=== PATIENT | male | born 1995 | race Caucasian/White ===

== ENCOUNTER 2018-02-06 18:46 | Emergency (ER) | payer SELFPAY ==
[~2018-02-06] VITALS: Ht 167.6 cm; Wt 77.1 kg
[2018-02-06 18:54] VITALS: BP 111/74
--- NOTE | 2018-02-06 18:59 | NUR ---
PT PLACED IN ER LOBBY TO WAIT FOR A BED.
--- NOTE | 2018-02-06 19:50 | NUR ---
22/M CAME IN W C/O RECTAL PAIN, BURNING SENSATION, CONSTANT X 2 DAYS AGO. PT DENIES ABD PAIN, MELENA/HEMATOCHEZIA, N/V/D, OR CONSTIPATION. DENIES OTHER PMH/RX/OTC
--- NOTE | 2018-02-06 19:51 | NUR ---
PT AMBULAED TO ER BED 6
[2018-02-06 21:20] VITALS: BP 131/92
--- NOTE | 2018-02-06 21:20 | NUR ---
Patient discharged with v/s stable. Written and verbal after care instructions given and explained. Patient alert, oriented and verbalized understanding of instructions. Ambulatory with steady gait. All questions addressed prior to discharge. ID band removed. Patient advised to follow up with PMD. Rx of ANUSOL RECTAL CREAM given. Patient educated on indication of medication including possible reaction and side effects. Opportunity to ask questions provided and answered.
== END 2018-02-06 19:50 | disposition home or self-care (01) ==
LOC: MED 18:46
DX: K64.4 Residual hemorrhoidal skin tags (principal); Z91.018 Allergy to other foods
CPT/HCPCS: 99282

== ENCOUNTER 2018-03-04 22:27 | Emergency (ER) | payer SELFPAY ==
[~2018-03-04] VITALS: Ht 167.6 cm; Wt 74.8 kg
[2018-03-04 22:33] VITALS: BP 142/80
--- NOTE | 2018-03-04 22:35 | NUR ---
TO LOBBY A/W BED, [place] LIN NOTED
--- NOTE | 2018-03-04 23:07 | NUR ---
PT RETURN FROM XRAY TO THE LOBBY
--- NOTE | 2018-03-05 00:12 | NUR ---
PT AMBULATED TO ER BED 9
--- NOTE | 2018-03-05 00:15 | NUR ---
22 Y/O M BIB SELF W/C/O FALLING ON L ARM LAST NIGHT. PT STATES, "THERE IS SEVERE PAIN WHEN I MOVE IT." POSITIVE CMS BUT PT STATES UNABLE TO STRAIGHTEN ARM. SWELLING NOTED ON THE L FOREARM. NO BRUSING OR REDNESS, BLEEDING NOTED. ABRASION NOTED ON L ARM. NO DEFORMITY NOTED. NO PMH NKA
[2018-03-05] MEDS ORDERED: IBUPROFEN 600 MG TAB PO ONE (01:50)
--- NOTE | 2018-03-05 01:59 | NUR ---
X-Ray at bedside.
--- NOTE | 2018-03-05 02:35 | NUR ---
PT RESTING COMFORTABLY IN BED. NO S/S OF DISTRESS NOTED. VSS. ALL NEEDS MET
--- NOTE | 2018-03-05 03:00 | NUR ---
PT RESTING COMFORTABLY IN BED. NO S/S OF DISTRESS NOTED. VSS. ALL NEEDS MET
[2018-03-05 03:25] VITALS: BP 136/68
--- NOTE | 2018-03-05 03:27 | NUR ---
Patient discharged with v/s stable. Written and verbal after care instructions given and explained. Patient alert, oriented and verbalized understanding of instructions. Ambulatory with steady gait. All questions addressed prior to discharge. ID band removed. Patient advised to follow up with PMD. Rx of NAPROSYN 500MG given. Patient educated on indication of medication including possible reaction and side effects. Opportunity to ask questions provided and answered.
--- NOTE | 2018-03-05 15:24 | NUR ---
GRANDMOTHER NOTIFIED THAT PT NEEDS TO COME BACK IN TO RECEIVE A DIFFERENT TYPE OF SPLINT PER DR. BAER'S ORDERS. GRANDMOTHER VERBALIZED THAT SHE WOULD RELAY THE INFORMATION TO PATIENT.
== END 2018-03-05 03:27 | disposition home or self-care (01) ==
LOC: MED 22:27
DX: S52.122A Displaced fracture of head of left radius, initial encounter for closed fracture (principal); S62.002A Unspecified fracture of navicular [scaphoid] bone of left wrist, initial encounter for closed fracture; Z91.018 Allergy to other foods; V00.131A Fall from skateboard, initial encounter; Y93.51 Activity, roller skating (inline) and skateboarding; Y92.89 Other specified places as the place of occurrence of the external cause; Y99.8 Other external cause status
CPT/HCPCS: 73080; 73090; 73110; 99284